=== PATIENT | male | born 1985 | race African-American/Black ===

== ENCOUNTER 2016-09-21 09:08 | Emergency (ER) | payer OTHER ==
[~2016-09-21] VITALS: Ht 162.6 cm; Wt 64.0 kg
[~2016-09-21 09:08] MED LIST: HYDR25SU23 PR; HYDR26CR PR
[2016-09-21 09:31] VITALS: Ht 162.6 cm; Wt 64.0 kg
[2016-09-21] MEDS ORDERED: SOD CHLORIDE 0.9% 1,000 ML IV STA (10:14)
[2016-09-21] MEDS ORDERED: IBUPROFEN 600 MG TAB PO ONE (10:30)
[2016-09-21 11:17] LABS: ADD SCAN DIFF NO
--- NOTE | 2016-09-21 11:24 | RADRPT ---
PROCEDURE: Chest x-ray CLINICAL INDICATION: Fever and abdominal pain TECHNIQUE: Chest single view COMPARISON: None FINDINGS: The heart is normal in size. The pulmonary vessels are normal in caliber. The lungs are clear. Th e costophrenic angles are sharp. The visualized bony thorax is unremarkable. IMPRESSION: No acute cardiopulmonary disease. RPTAT: HH .Juan Noble MD, Date Time Electronically viewed and signed by .Juan Noble MD, on 09/21/2016 11:23 .W/
[2016-09-21 11:28] LABS: ALBUMIN 4.3 g/dl (3.3-4.9); POTASSIUM 4.6 mmol/L (3.5-5.1)
[2016-09-21 11:30] LABS: BASOPHILS % 0.4 % (0.0-2.0); BILIRUBIN,INDIRECT 0.9 mg/dl (0-1.1); BILIRUBIN,TOTAL 0.9 mg/dl (0.2-1.3); CREATININE 1.43 mg/dl (0.61-1.24); EOSINOPHILS % 0.5 % (0.0-7.0); HEMATOCRIT 41.6 % (42.0-52.0); HEMOGLOBIN 14.4 g/dl (14.0-18.0); LYMPHOCYTES # 0.8 10^3/ul (0.8-2.9); LYMPHOCYTES % 13.8 % (15.0-51.0); MEAN CORPUSCULAR HEMOGLOBIN 30.1 pg (29.0-33.0); MEAN CORPUSCULAR HGB CONC 34.6 g/dl (32.0-37.0); MEAN CORPUSCULAR VOLUME 86.8 fl (82.0-101.0); MEAN PLATELET VOLUME 11.8 fl (7.4-10.4); MONOCYTE # 0.5 10^3/ul (0.3-0.9); MONOCYTES % 8.1 % (0.0-11.0); NEUTROPHIL # 4.3 10^3/ul (1.6-7.5); PLATELET COUNT 100 10^3/UL (140-415); RED BLOOD COUNT 4.79 10^6/ul (4.70-6.10); RED CELL DISTRIBUTION WIDTH 12.3 % (11.5-14.5); WHITE BLOOD COUNT 5.6 10^3/ul (4.8-10.8)
[2016-09-21 11:31] LABS: ALBUMIN/GLOBULIN RATIO 1.22; CALCIUM 9.8 mg/dl (8.4-10.2); TOTAL PROTEIN 7.8 g/dl (6.1-8.1)
[2016-09-21 12:01] LABS: INR 1.06; PROTIME 13.8 Sec (12.2-14.2); PT RATIO 1.1
[2016-09-21 12:02] LABS: PARTIAL THROMBOPLASTIN TIME 41.1 Sec (25.0-35.0)
[2016-09-21 12:14] LABS: ADD UMIC YES; URINE BILIRUBIN (Dip) NEGATIVE (NEGATIVE); URINE BLOOD (Dip) TRACE (NEGATIVE); URINE COLOR LT. YELLOW (YELLOW); URINE GLUCOSE (Dip) NEGATIVE (NEGATIVE); URINE KETONES (Dip) NEGATIVE (NEGATIVE); URINE LEUKOCYTE ESTERASE (Dip) NEGATIVE (NEGATIVE); URINE NITRITE (Dip) NEGATIVE (NEGATIVE); URINE TOTAL PROTEIN (Dip) NEGATIVE (NEGATIVE); URINE UROBILINOGEN (Dip) 1.0 E.U./dL (0.1-1.0)
[2016-09-21 12:39] LABS: URINE RBCS 0-2 /HPF (0)
[2016-09-21] MEDS ORDERED: IBUP-1542 PO (13:23)
[2016-09-21] MEDS ORDERED: ACET500C5 PO (13:23)
--- NOTE | 2016-09-21 13:36 | ERD ---
ER Documentation Chief Complaint Date/Time DATE: 09/21/16 TIME: 13:29 Chief Complaint FEVER,HEADACHE,CHILLS,WEAKNESS HPI 31-year-old male with no significant past medical history presents to the ED complaining of fever, weakness started 2 days ago. States that he just flew back from [place] 3 days ago. Denies any sick contacts. States that he may have been bitten by mosquitoes. Denies any cough, rhinorrhea, abdominal pain, nausea, vomiting. Reports that he did not get vaccinated. ROS All systems reviewed and are negative except as per history of present illness. Medications Home Meds Active Scripts Acetaminophen* (Tylophen*) 500 Mg Capsule, 1 CAP PO Q6H Y for PAIN AND OR ELEVATED TEMP, #20 CAP Prov:MAILE SANDOVAL PA-C 09/21/16 Ibuprofen* (Motrin*) 600 Mg Tab, 600 MG PO Q6, #30 TAB Prov:MAILE SANDOVAL PA-C 09/21/16 Hydrocortisone* Rectal (Preparation H* Cream) 1% - 26 Gm Cream.gm., 1 APPLIC PA TID, #1 TUB Prov:ETELVINA BRITO PA-C 05/03/16 Hydrocortisone Acetate (Anusol-Hc) 25 Mg Supp.rect, 25 MG PA BID Y for HEMORROID PAIN/ITCHING, #30 SUPP.RECT Prov:ETELVINA BRITO PA-C 05/03/16 Allergies Allergies: Coded Allergies: No Known Allergy (Unverified , 05/03/16) PMhx/Soc Medical and Surgical Hx: pt denies Medical Hx, pt denies Surgical Hx Hx Alcohol Use: No Hx Substance Use: No Hx Tobacco Use: No Smoking Status: Never smoker Physical Exam Vitals Vital Signs Date Time Temp Pulse Resp B/P Pulse Ox O2 Delivery O2 Flow Rate FiO2 09/21/16 09:31 100.5 105 59 105/58 98 Physical Exam Const: Yyp-pfh-shjaigibs, well-nourished. In no acute distress. Head: Atraumatic, normocephalic Eyes: Normal Conjunctiva without injection. No purulent discharge. PERRLA. EOMI ENT: Normal external ear. Ear canal without erythema. Tympanic membrane pearly rod without effusion or bulging. Nasal canal clear with normal turbinates. Moist oropharynx without tonsillar exudates. Non-erythematous pharynx. Uvula midline. No drooling. No trismus. Neck: No cervical midline tenderness. Full range of motion. No meningismus. No cervical lymphadenopathy. No JVD. Resp: Clear to auscultation bilaterally. No wheezing, rhonchi, rales, or crackles. No accessory muscle use. No retractions. Cardio: Regular rate and rhythm. No murmurs, rubs or gallops. Abd: Soft, non tender, non distended. Normal bowel sounds. No palpable masses. No rebound tenderness. No guarding. Negative McBurney's Point. Negative Ramírez's Sign. Skin: Normal skin turgor. No petechiae or rashes Back: No midline tenderness. No CVA tenderness. Ext: No cyanosis, or edema. Distal pulses intact bilaterally. Neur: Awake and alert. Normal gait. Normal coordination. Cranial Nerves II- VII intact. Normal finger to nose. Muscle strength 5/5. Sensation intact. Psych: Normal Mood and Affect Result Diagram: 09/21/16 1055 09/21/16 1055 Results 24 hrs Laboratory Tests Test 09/21/16 10:55 09/21/16 11:55 White Blood Count 5.610^3/ul Red Blood Count 4.7910^6/ul Hemoglobin 14.4g/dl Hematocrit 41.6% Mean Corpuscular Volume 86.8fl Mean Corpuscular Hemoglobin 30.1pg Mean Corpuscular Hemoglobin Concent 34.6g/dl Red Cell Distribution Width 12.3% Platelet Count 83285^3/UL Mean Platelet Volume 11.8fl Neutrophils % 77.0% Lymphocytes % 13.8% Monocytes % 8.1% Eosinophils % 0.5% Basophils % 0.4% Nucleated Red Blood Cells % 0.0/100WBC Neutrophils # 4.310^3/ul Lymphocytes # 0.810^3/ul Monocytes # 0.510^3/ul Eosinophils # 0.010^3/ul Basophils # 0.010^3/ul Nucleated Red Blood Cells # 0.010^3/ul Prothrombin Time 13.8Sec Prothrombin Time Ratio 1.1 INR International Normalized Ratio 1.06 Activated Partial Thromboplast Time 41.1Sec Sodium Level 142mmol/L Potassium Level 4.6mmol/L Chloride Level 101mmol/L Carbon Dioxide Level 28mmol/L Anion Gap 18 Blood Urea Nitrogen 20mg/dl Creatinine 1.43mg/dl Glucose Level 68mg/dl Calcium Level 9.8mg/dl Total Bilirubin 0.9mg/dl Direct Bilirubin 0.00mg/dl Indirect Bilirubin 0.9mg/dl Aspartate Amino Transf (AST/SGOT) 28IU/L Alanine Aminotransferase (ALT/SGPT) 29IU/L Alkaline Phosphatase 45IU/L Total Protein 7.8g/dl Albumin 4.3g/dl Globulin 3.50g/dl Albumin/Globulin Ratio 1.22 Lipase 67U/L Urine Color LT. YELLOW Urine Clarity CLEAR Urine pH 6.5 Urine Specific [place] 1.015 Urine Ketones NEGATIVE Urine Nitrite NEGATIVE Urine Bilirubin NEGATIVE Urine Urobilinogen 1.0 E.U./dL Urine Leukocyte Esterase NEGATIVE Urine Microscopic RBC 0-2/HPF Urine Microscopic WBC NONE SEEN/HPF Urine Hemoglobin TRACE Urine Glucose NEGATIVE% Urine Total Protein NEGATIVE Current Medications Medications (Trade) Dose Ordered Sig/Eugene Route PRN Reason Start Time Stop Time Status Last Admin Dose Admin Sodium Chloride (NS) 1,000 ml @ 1,000 mls/hr Q1H STAT IV 09/21/16 10:14 09/21/16 11:13 DC 09/21/16 11:00 Ibuprofen (Motrin) 600 mg ONCE ONCE PO 09/21/16 10:30 09/21/16 10:31 DC 09/21/16 11:08 Procedures/MDM This is a 31-year-old male with no significant past medical history presents to the ED complaining of fever and weakness after traveling to [facility] and returning 3 days ago. Symptoms started 2 days ago. Patient has a low-grade fever 100.5. Ibuprofen was ordered to further downtrend patient's temperature. Patient was further evaluated with a CBC, CMP, PT, PTT, influenza swab, malaria swab, chest x-ray and urinalysis. Patient symptoms have improved after ibuprofen as well as 1 L of normal saline. PROCEDURE: Chest x-ray CLINICAL INDICATION: Fever and abdominal pain TECHNIQUE: Chest single view COMPARISON: None FINDINGS: The heart is normal in size. The pulmonary vessels are normal in caliber. The lungs are clear. The costophrenic angles are sharp. The visualized bony thorax is unremarkable. IMPRESSION: No acute cardiopulmonary disease. CBC: No leukocytosis. No e/o of systemic infection. No e/o anemia. CMP: No e/o severe acidosis, alkalosis, renal failure, diabetic ketoacidosis, liver disease Lipase within normal limits. Urine: No leukocyte esterase, no nitrites, no hematuria. Negative malaria Negative influenza Pending 2 blood cultures This case was also discussed with my supervising physician, Dr. Starkey who agreed with the management and discharge plan. Dr. Galindo from the department of health in [facility] was also consulted and stated that there is low suspicion for Ebola in [facility]. Patient reports that he feels tremendously better after receiving fluids and ibuprofen. At this time patient has a febrile illness of unknown etiology. Patient is afebrile and has normal vital signs. Patient's physical exam include lungs which were clear to auscultation and a normal pulse oximetry. There is a low suspicion for malaria, ebola, yellow fever pneumonia, pneumothorax, pulmonary embolism, epiglottitis, otitis media, otitis externa, viral/strep pharyngitis, sinusitis, peritonsillar abscess , mastoiditis, retropharyngeal abscess, meningitis, sepsis, acute abdomen or other emergent conditions. Fluids, rest, and symptomatic treatment are recommended for the management of patient's symptoms. Discharge medications: Follow up with primary care physician in 1-2 days. Instructed patient to return to the ED sooner for any worsening symptoms. Patient's questions were answered. Patient understood and agreed with discharge plan. Patient discharged stable. Departure Diagnosis: Primary Impression: Febrile illness Condition: Stable Patient Instructions: Febrile Illness, Uncertain Cause (Adult) Referrals: [facility] YOU HAVE RECEIVED A MEDICAL SCREENING EXAM AND THE RESULTS INDICATE THAT YOU DO NOT HAVE A CONDITION THAT REQUIRES URGENT TREATMENT IN THE EMERGENCY DEPARTMENT. FURTHER EVALUATION AND TREATMENT OF YOUR CONDITION CAN WAIT UNTIL YOU ARE SEEN IN YOUR DOCTORS OFFICE WITHIN THE NEXT 1-2 DAYS. IT IS YOUR RESPONSIBILITY TO MAKE AN APPOINTMENT FOR FOLOW-UP CARE. IF YOU HAVE A PRIMARY DOCTOR --you should call your primary doctor and schedule and appointment IF YOU DO NOT HAVE A PRIMARY DOCTOR YOU CAN CALL OUR PHYSICIAN REFERRAL HOTLINE AT . IF YOU CAN NOT AFFORD TO SEE A PHYSICIAN YOU CAN CHOSE FROM THE FOLLOWING FORMERLY [facility] INSTITUTIONS: [facility] [address] [place] [address] [facility] [address] [place] [address] [facility] [address] [place] [address] [facility]RGENT [facility]/SPECIALTIES [facility] Additional Instructions: FOLLOW UP WITH YOUR PRIMARY CARE PHYSICIAN TOMORROW.Return to this facility if you are not improving as expected. MAILE SANDOVAL PA-C Sep 21, 2016 13:36
[2016-09-21 13:45] VITALS: PULSE 86; RESP 20; TEMP 98
== END 2016-09-21 13:48 | disposition home or self-care (01) ==
LOC: FTE 09:08
DX: R50.9 Fever, unspecified (principal); R10.9 Unspecified abdominal pain
CPT/HCPCS: 36415; 71010; 80053; 81001; 83690; 85025; 85610; 85730; 87207; 87400; J7030; Z7502; Z7610; 81003

== ENCOUNTER 2017-04-14 16:15 | Emergency (ER) | payer BC, OTHER ==
[~2017-04-14] VITALS: Ht 157.5 cm; Wt 64.5 kg
[~2017-04-14 16:15] MED LIST changes: +ACET500C5 PO; +IBUP-1542 PO
[2017-04-14 16:17] VITALS: Ht 157.5 cm; Wt 64.5 kg
[2017-04-14 16:48] LABS: URINE BLOOD (Dip) POC Trace-intact (NEGATIVE)
--- NOTE | 2017-04-14 16:50 | ERD ---
ER Documentation Chief Complaint Date/Time DATE: 04/14/17 TIME: 16:48 Chief Complaint Complains of dizziness since this am HPI This is a 31-year-old male presenting to the emergency department with complaints of dizziness starting earlier today. Patient states when he woke up this morning he felt like the room was spinning. Denies any vision changes. No loss of vision. Patient denies any nausea or vomiting. No fevers or chills. Denies headache. No weakness or fatigue. No dysuria or hematuria. Patient states at this time dizziness has improved significantly. Patient did not take any medications at home. ROS All systems reviewed and are negative except as per history of present illness. Medications Home Meds Active Scripts Meclizine Hcl* (Antivert*) 12.5 Mg Tab, 12.5 MG PO Q6H Y for DIZZINESS, #20 TAB Prov:SPRING MENDOZA NP 04/14/17 Acetaminophen* (Tylophen*) 500 Mg Capsule, 1 CAP PO Q6H Y for PAIN AND OR ELEVATED TEMP, #20 CAP Prov:MAILE SANDOVAL PA-C 09/21/16 Ibuprofen* (Motrin*) 600 Mg Tab, 600 MG PO Q6, #30 TAB Prov:MAILE SANDOVAL PA-C 09/21/16 Hydrocortisone* Rectal (Preparation H* Cream) 1% - 26 Gm Cream.gm., 1 APPLIC ID TID, #1 TUB Prov:ETELVINA BRITO PA-C 05/03/16 Hydrocortisone Acetate (Anusol-Hc) 25 Mg Supp.rect, 25 MG ID BID Y for HEMORROID PAIN/ITCHING, #30 SUPP.RECT Prov:ETELVINA BRITO PA-C 05/03/16 Allergies Allergies: Coded Allergies: No Known Allergy (Unverified , 05/03/16) PMhx/Soc Medical and Surgical Hx: pt denies Medical Hx, pt denies Surgical Hx Hx Alcohol Use: No Hx Substance Use: No Hx Tobacco Use: No Physical Exam Vitals Vital Signs Date Time Temp Pulse Resp B/P Pulse Ox O2 Delivery O2 Flow Rate FiO2 04/14/17 16:17 98.5 74 20 119/68 95 Physical Exam Const: No acute distress, alert Head: Atraumatic Eyes: Normal Conjunctiva ENT: Normal External Ears, Nose and Mouth. Neck: Full range of motion..~ No meningismus. Resp: Clear to auscultation bilaterally. No wheezing, rhonchi or crackles. No stridor or labored breathing. Cardio: Regular rate and rhythm, no murmurs Abd: Soft, non tender, non distended. Normal bowel sounds Skin: No petechiae or rashes Back: No midline or flank tenderness Ext: No cyanosis, or edema Neur: Awake and alert Psych: Normal Mood and Affect Result Diagram: 04/14/17 1643 04/14/17 1643 Results 24 hrs Laboratory Tests Test 04/14/17 16:43 04/14/17 16:55 White Blood Count 6.610^3/ul Red Blood Count 4.9710^6/ul Hemoglobin 14.9g/dl Hematocrit 43.0% Mean Corpuscular Volume 86.5fl Mean Corpuscular Hemoglobin 30.0pg Mean Corpuscular Hemoglobin Concent 34.7g/dl Red Cell Distribution Width 12.2% Platelet Count 89901^3/UL Mean Platelet Volume 10.3fl Neutrophils % 52.8% Lymphocytes % 34.9% Monocytes % 6.4% Eosinophils % 4.8% Basophils % 0.8% Nucleated Red Blood Cells % 0.0/100WBC Neutrophils # 3.510^3/ul Lymphocytes # 2.310^3/ul Monocytes # 0.410^3/ul Eosinophils # 0.310^3/ul Basophils # 0.110^3/ul Nucleated Red Blood Cells # 0.010^3/ul Sodium Level 135mmol/L Potassium Level 4.1mmol/L Chloride Level 104mmol/L Carbon Dioxide Level 28mmol/L Anion Gap 7 Blood Urea Nitrogen 15mg/dl Creatinine 1.32mg/dl Glucose Level 91mg/dl Calcium Level 10.2mg/dl Bedside Urine pH (LAB) 7.0 Bedside Urine Protein (LAB) Negative Bedside Urine Glucose (UA) Negative Bedside Urine Ketones (LAB) Negative Bedside Urine Blood Trace-intact Bedside Urine Nitrite (LAB) Negative Bedside Urine Leukocyte Esterase (L Negative Current Medications Medications (Trade) Dose Ordered Sig/Eugene Route PRN Reason Start Time Stop Time Status Last Admin Dose Admin Meclizine HCl (Antivert) 25 mg ONCE ONCE PO 04/14/17 17:00 04/14/17 17:01 DC 04/14/17 16:41 Procedures/MDM EKG: As interpreted by myself and Dr. Starkey Rate/Rhythm: Normal sinus rhythm with heart rate 66 bpm QRS, ST, T-waves: No changes consistent w/ acute ischemia Impression: No evidence of ischemia or arrhythmia MDM: This is a 31-year-old male presenting to emergency department for dizziness starting earlier today. Patient states at this time dizziness has improved since this morning. Patient denies any nausea or vomiting. No fevers or chills. No weakness or fatigue. No chest pain, shortness breath or difficulty breathing. Labs ordered. Urine ordered. CBC showed no significant anemia or infection. BMP shows no significant electrolyte imbalance. Urine is negative for infection. EKG shows normal sinus rhythm with heart rate 66 bpm. Upon reassessment, patient states he is feeling much better. Consulted with Dr. Starkey regarding this patient and we agree that patient is appropriate for outpatient management. Differential diagnosis includes but not limited to vertigo, presyncope, migraine headache, disequilibrium, hyperventilation, hypoglycemia, acute MO and dizziness not otherwise specified. Patient is appropriate for outpatient management and will be given prescription for meclizine 12.5mg #20. Instructed patient to follow-up with primary care provider in the next 2-3 days for reassessment and additional management. Return to ED for any high fever, chest pain, difficulty breathing, shortness breath, wheezing, vomiting, diarrhea, abdominal pain or any new or worsening symptoms. Patient verbalizes understanding. All questions answered at discharge. Disclaimer: Inadvertent spelling and grammatical errors are likely due to EHR/ dictation software use and do not reflect on the overall quality of patient care. Also, please note that the electronic time recorded on this note does not necessarily reflect the actual time of the patient encounter. Departure Diagnosis: Primary Impression: Dizziness Condition: Stable SPRING MENDOZA NP Apr 14, 2017 16:50
[2017-04-14] MEDS ORDERED: MECLIZINE 12.5 MG TAB PO ONE (17:00)
[2017-04-14 17:04] LABS: BASOPHIL # 0.1 10^3/ul (0.0-0.1); BASOPHILS % 0.8 % (0.0-2.0); EOSINOPHILS # 0.3 10^3/ul (0.0-0.5); EOSINOPHILS % 4.8 % (0.0-7.0); HEMOGLOBIN 14.9 g/dl (14.0-18.0); LYMPHOCYTES # 2.3 10^3/ul (0.8-2.9); LYMPHOCYTES % 34.9 % (15.0-51.0); MEAN CORPUSCULAR HGB CONC 34.7 g/dl (32.0-37.0); MEAN CORPUSCULAR VOLUME 86.5 fl (82.0-101.0); MEAN PLATELET VOLUME 10.3 fl (7.4-10.4); MONOCYTE # 0.4 10^3/ul (0.3-0.9); MONOCYTES % 6.4 % (0.0-11.0); NEUTROPHIL # 3.5 10^3/ul (1.6-7.5); NEUTROPHILS % 52.8 % (39.0-77.0); PLATELET COUNT 188 10^3/UL (140-415); RED BLOOD COUNT 4.97 10^6/ul (4.70-6.10); RED CELL DISTRIBUTION WIDTH 12.2 % (11.5-14.5); WHITE BLOOD COUNT 6.6 10^3/ul (4.8-10.8)
[2017-04-14 17:26] LABS: CALCIUM 10.2 mg/dl (8.4-10.2); CREATININE 1.32 mg/dl (0.61-1.24); POTASSIUM 4.1 mmol/L (3.5-5.1)
[2017-04-14] MEDS ORDERED: MECL12.574 PO (17:47)
[2017-04-14 18:07] VITALS: BP 119/68; PULSE 71; RESP 20
== END 2017-04-14 18:07 | disposition left against medical advice (07) ==
LOC: FTE 16:15
DX: R42 Dizziness and giddiness (principal)
CPT/HCPCS: 80048; 81003; 85025; Z7502; Z7610

== ENCOUNTER 2017-07-30 17:22 | Emergency (ER) | END 2017-07-30 18:57 | disposition left against medical advice (07) ==

== ENCOUNTER 2018-11-12 16:58 | Emergency (ER) | payer OTHER ==
[~2018-11-12] VITALS: Wt 76.0 kg
[~2018-11-12 16:58] MED LIST changes: +MECL12.574 PO
[2018-11-12] MEDS ORDERED: IBUPROFEN 600 MG TAB PO ONE (19:00)
[2018-11-12] MEDS ORDERED: IBUP-1542 PO (19:20)
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
[2018-11-12] MEDS ORDERED: GUAI1TBM12 PO (19:24)
[2018-11-12 20:05] VITALS: BP 114/68; PULSE 61; RESP 17
== END 2018-11-12 20:05 | disposition home or self-care (01) ==
LOC: FTE 16:58
DX: S63.501A Unspecified sprain of right wrist, initial encounter (principal); S39.012A Strain of muscle, fascia and tendon of lower back, initial encounter; S13.9XXA Sprain of joints and ligaments of unspecified parts of neck, initial encounter; V49.40XA Driver injured in collision with unspecified motor vehicles in traffic accident, initial encounter
CPT/HCPCS: 72040; 72100; 73110; Z7502; Z7610

== ENCOUNTER 2018-12-12 11:00 | Emergency (ER) | payer OTHER ==
[~2018-12-12] VITALS: Ht 175.3 cm; Wt 68.4 kg
[~2018-12-12 11:00] MED LIST changes: +GUAI1TBM12 PO
[2018-12-12 11:11] VITALS: BP 144/80; PULSE 76; RESP 20; Ht 175.3 cm; Wt 68.4 kg
[2018-12-12] MEDS ORDERED: ACET325T33 PO (12:44)
[2018-12-12] MEDS ORDERED: FAMO-96 PO (12:44)
--- NOTE | 2018-12-12 12:51 | ERD ---
ER Documentation Chief Complaint Chief Complaint SOB x 4 days HPI 33-year-old male presenting with shortness of breath x4 days. Patient states he has a bitter taste in his mouth with a sore throat. He states that this causes some shortness of breath. Has no cough. Occasionally has mucus. Denies medical problems. NKDA. Surgical history denies. Social history denies ROS All systems reviewed and are negative except as per history of present illness. Medications Home Meds Active Scripts Acetaminophen* (Tylenol*) 325 Mg Tablet, 2 TAB PO Q6 PRN for PAIN AND OR ELEVATED TEMP, #20 TAB Prov:EDWIN CHAUDHRY PA-C 12/12/18 Famotidine* (Pepcid*) 20 Mg Tablet, 20 MG PO BID for 4 Days, #30 TAB Prov:EDWIN CHAUDHRY PA-C 12/12/18 Guaifenesin/Dextromethorphan (Mucinex Dm ER 1,200-60 mg Tab) 1 Each Tbmp.12hr, 1 EACH PO BID for 7 Days, #14 TAB Prov:MELISSA BASILIO MD 11/12/18 Ibuprofen* (Motrin*) 600 Mg Tab, 600 MG PO Q6, #30 TAB Prov:MELISSA BASILIO MD 11/12/18 Meclizine Hcl* (Antivert*) 12.5 Mg Tab, 12.5 MG PO Q6H PRN for DIZZINESS, #20 TAB Prov:SPRING MENDOZA NP 04/14/17 Acetaminophen* (Tylophen*) 500 Mg Capsule, 1 CAP PO Q6H PRN for PAIN AND OR ELEVATED TEMP, #20 CAP Prov:MAILE SANDOVAL PA-C 09/21/16 Ibuprofen* (Motrin*) 600 Mg Tab, 600 MG PO Q6, #30 TAB Prov:MAILE SANDOVAL PA-C 09/21/16 Hydrocortisone* Rectal (Preparation H* Cream) 1% - 26 Gm Cream.gm., 1 APPLIC MD TID, #1 TUB Prov:ETELVINA BRITO PA-C 05/03/16 Hydrocortisone Acetate (Anusol-Hc) 25 Mg Supp.rect, 25 MG MD BID PRN for HEMORROID PAIN/ITCHING, #30 SUPP.RECT Prov:ETELVINA BRITO PA-C 05/03/16 Allergies Allergies: Coded Allergies: No Known Allergy (Unverified , 05/03/16) PMhx/Soc History of Surgery: No Anesthesia Reaction: No Hx Neurological Disorder: No Hx Respiratory Disorders: No Hx Cardiac Disorders: No Hx Psychiatric Problems: No Hx Miscellaneous Medical Probl: No Hx Alcohol Use: No Hx Substance Use: No Hx Tobacco Use: No Smoking Status: Never smoker FmHx Family History: No diabetes, No coronary disease, No other Physical Exam Vitals Vital Signs Date Temp Pulse Resp B/P (MAP) Pulse Ox O2 O2 Flow FiO2 Time Delivery Rate 12/12/18 97.2 76 20 144/80 99 11:11 (101) Physical Exam GENERAL: The patient is well-appearing, well-nourished, in no acute distress HEENT: Atraumatic. Conjunctivae are pink. Pupils equal, round, and reactive to light. There is no scleral icterus. Tympanic membranes clear bilaterally. Oropharynx clear. NECK: C-spine is soft and supple. There is no meningismus. There is no cervical lymphadenopathy. CHEST: Clear to auscultation bilaterally. There are no rales, wheezes or rhonchi. HEART: Regular rate and rhythm. No murmurs, clicks, rubs or gallops. Results 24 hrs Laboratory Tests Test 12/12/18 12:14 Bedside Glucose 82 mg/dL Procedures/MDM DIAGNOSTIC IMAGING REPORT Patient: SYED LOGAN : 1985 Age: 33 Sex: M MR #: [id number] DOS: 12/12/18 1210 Ordering MD: GRAYSON CHAUDHRY PA-C Location: [facility] Room/Bed: PROCEDURE: XR Chest. CLINICAL INDICATION: Cough TECHNIQUE: PA chest was obtained COMPARISON: Chest 09/21/2016 FINDINGS: Cardiomediastinal silhouette is normal. Pulmonary vasculature is normal. Lungs and costophrenic angles are clear. Bones soft tissues are unremarkable. IMPRESSION: No evidence of acute cardiopulmonary disease. MDM: 33-year-old male presenting with bitter taste in his mouth and sore throat. I have low suspicion for cardiac or pulmonary abnormalities. Patient's symptoms are likely associated with GERD. I have low suspicion for infectious process. Patient is discharged with supportive medications and told to follow- up with primary care within 1 to 2 days for close evaluation. All questions answered at discharge Departure Diagnosis: Primary Impression: GERD (gastroesophageal reflux disease) Condition: Stable Patient Instructions: Gerd (Adult) Referrals: [facility] YOU HAVE RECEIVED A MEDICAL SCREENING EXAM AND THE RESULTS INDICATE THAT YOU DO NOT HAVE A CONDITION THAT REQUIRES URGENT TREATMENT IN THE EMERGENCY DEPARTMENT. FURTHER EVALUATION AND TREATMENT OF YOUR CONDITION CAN WAIT UNTIL YOU ARE SEEN IN YOUR DOCTORS OFFICE WITHIN THE NEXT 1-2 DAYS. IT IS YOUR RESPONSIBILITY TO MAKE AN APPOINTMENT FOR FOLOW-UP CARE. IF YOU HAVE A PRIMARY DOCTOR --you should call your primary doctor and schedule an appointment IF YOU DO NOT HAVE A PRIMARY DOCTOR YOU CAN CALL OUR PHYSICIAN REFERRAL HOTLINE AT IF YOU CAN NOT AFFORD TO SEE A PHYSICIAN YOU CAN CHOSE FROM THE FOLLOWING [facility] [address] [facility] [address] [facility] [facility] [address] [facility] [address] [facility] [address] [facility] [facility] [address] Additional Instructions: FOLLOW UP WITH YOUR PRIMARY CARE PHYSICIAN TOMORROW.Return to this facility if you are not improving as expected. EDWIN CHAUDHRY PA-C Dec 12, 2018 12:51
== END 2018-12-12 12:57 | disposition home or self-care (01) ==
LOC: FTE 11:00
DX: K21.9 Gastro-esophageal reflux disease without esophagitis (principal)
CPT/HCPCS: 71045; 82962; Z7502